=== PATIENT | female | born 1985 | race American Indian/Alaskan Native ===

== ENCOUNTER 2018-04-06 21:49 | Emergency (ER) | payer MEDICAID ==
[2018-04-06 22:08] VITALS: BP 131/74
== END 2018-04-07 00:10 | disposition left against medical advice (07) ==
LOC: ED 21:49
DX: G43.909 Migraine, unspecified, not intractable, without status migrainosus (principal); Z53.21 Procedure and treatment not carried out due to patient leaving prior to being seen by health care provider